=== PATIENT | female | born 1950 | race Two or more races ===

== ENCOUNTER → 2016-10-31 | Outpatient (CLI) | payer MEDICARE, BC ==
--- NOTE | 2016-10-31 18:46 | RADRPT ---
Vent Rate: 51 bpm RR Interval: 0 msec TN Interval: 150 msec QRS Duration: 88 msec QT Interval: 458 msec QTC Interval: 422 msec P-R-T [place]: 47 - 31 - 100 degrees Sinus bradycardia Nonspecific ST and T wave abnormality Abnormal ECG Electronically Signed By: Fred Bradley [id number]
== END | disposition home or self-care (01) ==
LOC: EKG 12:48
PROVIDERS: ATTEND Internal Medicine
DX: R07.89 Other chest pain (principal)
CPT/HCPCS: 93005

== ENCOUNTER 2018-02-13 13:35 | Inpatient (IN) | END 2018-02-17 10:30 | disposition home or self-care (01) | DRG 392 ==